=== PATIENT | female | born 1990 | race Caucasian/White ===

== ENCOUNTER 2016-10-09 18:42 | Emergency (ER) | payer OTHER ==
--- NOTE | 2016-10-09 22:17 | ED ORDER SUMMARY ---
..... Patient: LYNDSAY GARCIA OrderSheet [facility] VisitID: [id number] [place] [address] 26y, F Registration Date/Time: 10/09/2016 ORDER SHEET Weight: 45.3 kg (stated) Allergies: Citalopram GENERAL ORDERS: MEDICATION ORDERS: Azithromycin PO 1000 mg (NOW) (21:51 10/09/2016 EKoroleva P.A.-C) (22:27 TBowen R.N.) Cefixime PO 400 mg (NOW) (21:51 10/09/2016 EKoroleva P.A.-C) (22:27 TBowen R.N.) Flagyl PO 2000 mg (NOW) (21:51 10/09/2016 EKoroleva P.A.-C) (22:27 TBowen R.N.) Plan B PO 1.5 mg (NOW) (21:52 10/09/2016 EKoroleva P.A.-C) (22:27 TBowen R.N.) IV FLUIDS: ORDER SHEET NOTES: [Electronically signed by Georgina Bullock R.N. (22:33 10/09/2016)] [Electronically signed by Neda Flores P.A.-C (22:38 10/09/2016)] [Electronically locked/signed by Georgina Bullock R.N. (22:33 10/09/2016)]
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
--- NOTE | 2016-10-09 22:17 | ED ORDER SUMMARY ---
..... Patient: LYNDSAY GARCIA OrderSheet [facility] VisitID: [id number] [place] [address] 26y, F Registration Date/Time: 10/09/2016 ORDER SHEET Weight: 45.3 kg (stated) Allergies: Citalopram GENERAL ORDERS: MEDICATION ORDERS: Azithromycin PO 1000 mg (NOW) (21:51 10/09/2016 EKoroleva P.A.-C) (22:27 TBowen R.N.) Cefixime PO 400 mg (NOW) (21:51 10/09/2016 EKoroleva P.A.-C) (22:27 TBowen R.N.) Flagyl PO 2000 mg (NOW) (21:51 10/09/2016 EKoroleva P.A.-C) (22:27 TBowen R.N.) Plan B PO 1.5 mg (NOW) (21:52 10/09/2016 EKoroleva P.A.-C) (22:27 TBowen R.N.) IV FLUIDS: ORDER SHEET NOTES: [Electronically signed by Georgina Bullock R.N. (22:33 10/09/2016)] [Electronically signed by Neda Flores P.A.-C (22:38 10/09/2016)] [Electronically locked/signed by Georgina Bullock R.N. (22:33 10/09/2016)]
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
--- NOTE | 2016-10-09 22:38 | ED MAR SUMMARY ---
..... Medication Administration Record [facility] [address] [place] [address] Patient: LYNDSAY GARCIA Visit ID: [id number] 26y, F Weight: 45.3 kg Height/Length: 60 in BMI: 19.5 ALLERGIES: Citalopram Given 22:10/09/2016 Jessie RYvrose Medication Administered: AZITHROMYCIN [PO], Dose: 1000 mg PO. Medication Ordered: Azithromycin PO 1000 mg (NOW). Given :10/09/2016 Jessie R.N. Medication Administered: CEFIXIME [PO], Dose: 400 mg PO. Medication Ordered: Cefixime PO 400 mg (NOW). Given :10/09/2016 Jessie R.N. Medication Administered: FLAGYL [PO] (METRONIDAZOLE), Dose: 2000 mg PO. Medication Ordered: Flagyl PO 2000 mg (NOW). Given :10/09/2016 Jessie R.N. Medication Administered: PLAN B [PO] (LEVONORGESTREL), Dose: 1.5 mg PO. Medication Ordered: Plan B PO 1.5 mg (NOW).
--- NOTE | 2016-10-09 22:38 | ED MED RECONCILIATION SUMMARY ---
Patient: LYNDSAY GARCIA Medication Reconciliation Report [facility] VisitID: [id number] [place] [address] 26y, F Registration Date/Time: 10/09/2016 Weight: 45.3 kg Height/Length: 60 in. BMI: 19.5 ALLERGIES: Citalopram The patient's Home Medications are listed below: THE FOLLOWING MEDICATIONS NEED TO BE RECONCILED: Gabapentin Oral (300 mg) 1 capsule, 3x a day Ondansetron HCl Oral (4 mg) 1 tablet Ranitidine HCl Oral (150 mg) 1 tablet, 2x a day Venlafaxine HCl ER Oral (37.5 mg), bid The source(s) of the original Home Medication information: patient's pill bottles The following Medications were given to the patient in the Emergency Department: Azithromycin [PO] PO 1000 mg, administered: 10/09/2016 10:17:00 PM Cefixime [PO] PO 400 mg, administered: 10/09/2016 10:17:00 PM Flagyl [PO] PO 2000 mg, administered: 10/09/2016 10:17:00 PM Plan B [PO] PO 1.5 mg, administered: 10/09/2016 10:17:00 PM The following Medications were prescribed to the patient: Take OTC medications according to label instructions. Available over the counter. -- Neda Flores, P.A.-C Acetaminophen (available over the counter): take according to label instructions. -- Neda Flores, P.A.-C Motrin (available over the counter): take according to label instructions. -- Neda Flores, P.A.-C
--- NOTE | 2016-10-09 22:38 | ED MED RECONCILIATION SUMMARY ---
Patient: LYNDSAY GARCIA Medication Reconciliation Report [facility] VisitID: [id number] [place] [address] 26y, F Registration Date/Time: 10/09/2016 Weight: 45.3 kg Height/Length: 60 in. BMI: 19.5 ALLERGIES: Citalopram The patient's Home Medications are listed below: THE FOLLOWING MEDICATIONS NEED TO BE RECONCILED: Gabapentin Oral (300 mg) 1 capsule, 3x a day Ondansetron HCl Oral (4 mg) 1 tablet Ranitidine HCl Oral (150 mg) 1 tablet, 2x a day Venlafaxine HCl ER Oral (37.5 mg), bid The source(s) of the original Home Medication information: patient's pill bottles The following Medications were given to the patient in the Emergency Department: Azithromycin [PO] PO 1000 mg, administered: 10/09/2016 10:17:00 PM Cefixime [PO] PO 400 mg, administered: 10/09/2016 10:17:00 PM Flagyl [PO] PO 2000 mg, administered: 10/09/2016 10:17:00 PM Plan B [PO] PO 1.5 mg, administered: 10/09/2016 10:17:00 PM The following Medications were prescribed to the patient: Take OTC medications according to label instructions. Available over the counter. -- Neda Flores, P.A.-C Acetaminophen (available over the counter): take according to label instructions. -- Neda Flores, P.A.-C Motrin (available over the counter): take according to label instructions. -- Neda Flores, P.A.-C
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
--- NOTE | 2016-10-09 22:38 | ED MAR SUMMARY ---
..... Medication Administration Record [facility] [address] [place] [address] Patient: LYNDSAY GARCIA Visit ID: [id number] 26y, F Weight: 45.3 kg Height/Length: 60 in BMI: 19.5 ALLERGIES: Citalopram Given 22:10/09/2016 Jessie RYvrose Medication Administered: AZITHROMYCIN [PO], Dose: 1000 mg PO. Medication Ordered: Azithromycin PO 1000 mg (NOW). Given :10/09/2016 Jessie R.N. Medication Administered: CEFIXIME [PO], Dose: 400 mg PO. Medication Ordered: Cefixime PO 400 mg (NOW). Given :10/09/2016 Jessie R.N. Medication Administered: FLAGYL [PO] (METRONIDAZOLE), Dose: 2000 mg PO. Medication Ordered: Flagyl PO 2000 mg (NOW). Given :10/09/2016 Jessie R.N. Medication Administered: PLAN B [PO] (LEVONORGESTREL), Dose: 1.5 mg PO. Medication Ordered: Plan B PO 1.5 mg (NOW).
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
== END 2016-10-09 22:30 | disposition home or self-care (01) ==
LOC: ED SRH 18:42
DX: Z04.41 Encounter for examination and observation following alleged adult rape (principal); Z87.891 Personal history of nicotine dependence; Z79.899 Other long term (current) drug therapy

== ENCOUNTER 2016-12-17 12:47 | Emergency (ER) | payer SELFPAY ==
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
--- NOTE | 2016-12-17 13:19 | ED ORDER SUMMARY ---
..... Patient: LYNDSAY GARCIA OrderSheet [facility] VisitID: [id number] [address] [place] [address] 26y, F Registration Date/Time: 12/17/2016 ORDER SHEET Weight: 43.9 kg (stated) Allergies: Citalopram GENERAL ORDERS: MEDICATION ORDERS: Decadron IM 8 mg (NOW) (13:12 12/17/2016 Yesenia A.R.N.P.) ([facility] 13:16 Kiley R.N.) (13:35 Kristine R.N.) IV FLUIDS: ORDER SHEET NOTES: [Electronically signed by He Suazo R.N. (13:51 12/17/2016)] [Electronically signed by Renu PetersonR.N.P. (20:37 12/17/2016)] [Electronically locked/signed by He Suazo R.N. (13:51 12/17/2016)]
--- NOTE | 2016-12-17 13:19 | ED ORDER SUMMARY ---
..... Patient: LYNDSAY GARCIA OrderSheet [facility] VisitID: [id number] [address] [place] [address] 26y, F Registration Date/Time: 12/17/2016 ORDER SHEET Weight: 43.9 kg (stated) Allergies: Citalopram GENERAL ORDERS: MEDICATION ORDERS: Decadron IM 8 mg (NOW) (13:12 12/17/2016 Yesenia A.R.N.P.) ([facility] 13:16 Kiley R.N.) (13:35 Kristine R.N.) IV FLUIDS: ORDER SHEET NOTES: [Electronically signed by He Suazo R.N. (13:51 12/17/2016)] [Electronically signed by Renu PetersonR.N.P. (20:37 12/17/2016)] [Electronically locked/signed by He Suazo R.N. (13:51 12/17/2016)]
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
--- NOTE | 2016-12-17 20:37 | ED DISCHARGE INSTRUCTIONS ---
Patient: LYNDSAY GARCIA General Instructions [facility] VisitID: [id number] [place] [address] 26y, F Registration Date/Time: 12/17/2016 Mild irritative contact dermatitis. INSTRUCTIONS ([facility] [address] [facility] [address] Dermatology: ). Warnings: GENERAL WARNINGS: Return or contact your physician immediately if your condition worsens or changes unexpectedly, if not improving as expected, or if other problems arise. Specifically return if problem worsens. Prescription Medications: Nena 180 mg tablets: take 1 orally daily for 10 days. Dispense ten (10). No refills. Prednisone 20 mg: take 3 orally every day for 5 days. Dispense fifteen (15). No refills. Keflex 500 mg: take 1 capsule orally every 6 hours for 10 days. No refill. Motrin 800 mg tablets: take 1 tablet orally every 8 hours as needed for pain. Dispense thirty (30). No refills. Substitution is permissible. Betamethasone Diproprinate 60ml bottle or 45gm tube apply bid to affected area. Follow-up: Follow up with a district plant supervisor in about two days even if well. Call for an appointment. Summary of care provided to patient. Understanding of the discharge instructions verbalized by patient. ADDITIONAL INFORMATION Dermatitis (Non-Specific) Dermatitis is an inflammation of the skin. The exact cause of your rash is not certain. However, this rash does not appear to be an infection or contagious illness. Taking care of the rash at home should help relieve your symptoms. Home Care: Keep the areas of rash clean by washing it daily. This also helps to keep the skin moist. Use a neutral pH soap such as Dove or Lever 2000. Apply a moisturizing lotion after bathing to prevent dry skin. Avoid skin irritants (wool or silk clothing, grease, oils, some medicines, harsh soaps, and detergents). Wear absorbent, soft fabrics next to the skin rather than rough or scratchy materials. Unless another medicine was prescribed, you may use Hydrocortisone cream (which you can get without a prescription) to reduce the inflammation. Follow Up: Make an appointment with your doctor in the next 1 to 2 weeks if your symptoms do not improve with the above measures. Get Prompt Medical Attention if any of the following occur: Increasing area of redness or pain in the skin Yellow crusts or drainage from the rash Joint pain New rash that appears in other areas of the body Fever of 100.4F (38C) or higher, or as directed by your healthcare provider Fexofenadine Hydrochloride Oral tablet What is this medicine? FEXOFENADINE (fex oh CHE a kurt) is an antihistamine. This medicine is used to treat or prevent symptoms of allergies. It is also used to help reduce itchy skin rash and hives. How should I use this medicine? Take this medicine by mouth with a full glass of water. Follow the directions on the prescription label. You may take this medicine with food or on an empty stomach. Take your medicine at regular intervals. Do not take it more often than directed. You may need to take this medicine for several days before your symptoms improve. Talk to your home performance laborer regarding the use of this medicine in children. While this drug may be prescribed for children as young as 6 years old for selected conditions, precautions do apply. What side effects may I notice from receiving this medicine? Side effects that you should report to your doctor or health childcare worker as soon as possible: allergic reactions like skin rash, itching or hives, swelling of the face, lips, or tongue breathing problems chest pain fast heartbeat infection or fever Side effects that usually do not require medical attention (report to your doctor or health childcare worker if they continue or are bothersome): cough drowsiness dry or irritated nose, mouth, or throat headache menstrual changes pain stomach upset, nausea What may interact with this medicine? antacids erythromycin grapefruit, apple, or orange juice ketoconazole magnesium-containing products What if I miss a dose? If you miss a dose, take it as soon as you can. If it is almost time for your next dose, take only that dose. Do not take double or extra doses. Where should I keep my medicine? Keep out of the reach of children. Store at room temperature between 20 and 25 degrees C (68 and 77degrees F). Protect from moisture. Throw away any unused medicine after the expiration date. What should I tell my health care provider before I take this medicine? They need to know if you have any of these conditions: kidney disease an unusual or allergic reaction to fexofenadine, terfenadine, other medicines, foods, dyes, or preservatives or trying to get breast-feeding What should I watch for while using this medicine? Visit your doctor or health childcare worker for regular checks on your health. Tell your doctor or healthcare professional if your symptoms do not start to get better or if they get worse. Prednisone Oral tablet What is this medicine? PREDNISONE (PRED ni sone) is a corticosteroid. It is commonly used to treat inflammation of the skin, joints, lungs, and other organs. Common conditions treated include asthma, allergies, and arthritis. It is also used for other conditions, such as blood disorders and diseases of the adrenal glands. How should I use this medicine? Take this medicine by mouth with a glass of water. Follow the directions on the prescription label. Take this medicine with food. If you are taking this medicine once a day, take it in the morning. Do not take more medicine than you are told to take. Do not suddenly stop taking your medicine because you may develop a severe reaction. Your doctor will tell you how much medicine to take. If your doctor wants you to stop the medicine, the dose may be slowly lowered over time to avoid any side effects. Talk to your home performance laborer regarding the use of this medicine in children. Special care may be needed. What side effects may I notice from receiving this medicine? Side effects that you should report to your doctor or health childcare worker as soon as possible: allergic reactions like skin rash, itching or hives, swelling of the face, lips, or tongue changes in emotions or moods changes in vision depressed mood eye pain fever or chills, cough, sore throat, pain or difficulty passing urine increased thirst swelling of ankles, feet Side effects that usually do not require medical attention (report to your doctor or health childcare worker if they continue or are bothersome): confusion, excitement, restlessness headache nausea, vomiting skin problems, acne, thin and shiny skin trouble sleeping weight gain What may interact with this medicine? Do not take this medicine with any of the following medications: metyrapone mifepristone This medicine may also interact with the following medications: aminoglutethimide amphotericin B aspirin and aspirin-like medicines barbiturates certain medicines for diabetes, like glipizide or glyburide cholestyramine cholinesterase inhibitors cyclosporine digoxin diuretics ephedrine female hormones, like estrogens and control pills isoniazid ketoconazole NSAIDS, medicines for pain and inflammation, like ibuprofen or naproxen phenytoin rifampin toxoids vaccines warfarin What if I miss a dose? If you miss a dose, take it as soon as you can. If it is almost time for your next dose, talk to your doctor or health childcare worker. You may need to miss a dose or take an extra dose. Do not take double or extra doses without advice. Where should I keep my medicine? Keep out of the reach of children. Store at room temperature between 15 and 30 degrees C (59 and 86 degrees F). Protect from light. Keep container tightly closed. Throw away any unused medicine after the expiration date. What should I tell my health care provider before I take this medicine? They need to know if you have any of these conditions: Eliu's syndrome diabetes glaucoma heart disease high blood pressure infection (especially a virus infection such as chickenpox, cold sores, or herpes) kidney disease liver disease mental illness myasthenia gravis osteoporosis seizures stomach or intestine problems thyroid disease an unusual or allergic reaction to lactose, prednisone, other medicines, foods, dyes, or preservatives or trying to get breast-feeding What should I watch for while using this medicine? Visit your doctor or health childcare worker for regular checks on your progress. If you are taking this medicine over a prolonged period, carry an identification card with your name and address, the type and dose of your medicine, and your doctor's name and address. This medicine may increase your risk of getting an infection. Tell your doctor or health childcare worker if you are around anyone with measles or chickenpox, or if you develop sores or blisters that do not heal properly. If you are going to have surgery, tell your doctor or health childcare worker that you have taken this medicine within the last twelve months. Ask your doctor or health childcare worker about your diet. You may need to lower the amount of salt you eat. This medicine may affect blood sugar levels. If you have diabetes, check with your doctor or health childcare worker before you change your diet or the dose of your diabetic medicine. Cephalexin Monohydrate Oral tablet What is this medicine? CEPHALEXIN (sef a DARON in) is a cephalosporin antibiotic. It is used to treat certain kinds of bacterial infections It will not work for colds, flu, or other viral infections. How should I use this medicine? Take this medicine by mouth with a full glass of water. Follow the directions on the prescription label. This medicine can be taken with or without food. Take your medicine at regular intervals. Do not take your medicine more often than directed. Take all of your medicine as directed even if you think you are better. Do not skip doses or stop your medicine early. Talk to your home performance laborer regarding the use of this medicine in children. While this drug may be prescribed for selected conditions, precautions do apply. What side effects may I notice from receiving this medicine? Side effects that you should report to your doctor or health childcare worker as soon as possible: allergic reactions like skin rash, itching or hives, swelling of the face, lips, or tongue breathing problems pain or trouble passing urine redness, blistering, peeling or loosening of the skin, including inside the mouth severe or watery diarrhea unusually weak or tired yellowing of the eyes, skin Side effects that usually do not require medical attention (report to your doctor or health childcare worker if they continue or are bothersome): gas or heartburn genital or anal irritation headache joint or muscle pain nausea, vomiting What may interact with this medicine? probenecid some other antibiotics What if I miss a dose? If you miss a dose, take it as soon as you can. If it is almost time for your next dose, take only that dose. Do not take double or extra doses. There should be at least 4 to 6 hours between doses. Where should I keep my medicine? Keep out of the reach of children. Store at room temperature between 59 and 86 degrees F (15 and 30 degrees C). Throw away any unused medicine after the expiration date. What should I tell my health care provider before I take this medicine? They need to know if you have any of these conditions: kidney disease stomach or intestine problems, especially colitis an unusual or allergic reaction to cephalexin, other cephalosporins, penicillins, other antibiotics, medicines, foods, dyes or preservatives or trying to get breast-feeding What should I watch for while using this medicine? Tell your doctor or health childcare worker if your symptoms do not begin to improve in a few days. Do not treat diarrhea with over the counter products. Contact your doctor if you have diarrhea that lasts more than 2 days or if it is severe and watery. If you have diabetes, you may get a false-positive result for sugar in your urine. Check with your doctor or health childcare worker. Ibuprofen Oral tablet What is this medicine? IBUPROFEN (eye BYOO proe fen) is a non-steroidal anti-inflammatory drug (NSAID). It is used for dental pain, fever, headaches or migraines, osteoarthritis, rheumatoid arthritis, or painful monthly periods. It can also relieve minor aches and pains caused by a cold, flu, or sore throat. How should I use this medicine? Take this medicine by mouth with a glass of water. Follow the directions on the prescription label. Take this medicine with food if your stomach gets upset. Try to not lie down for at least 10 minutes after you take the medicine. Take your medicine at regular intervals. Do not take your medicine more often than directed. A special MedGuide will be given to you by the pharmacist with each prescription and refill. Be sure to read this information carefully each time. Talk to your home performance laborer regarding the use of this medicine in children. Special care may be needed. What side effects may I notice from receiving this medicine? Side effects that you should report to your doctor or health childcare worker as soon as possible: allergic reactions like skin rash, itching or hives, swelling of the face, lips, or tongue black or bloody stools, blood in the urine or in vomit breathing problems changes in vision chest pain general ill feeling or flu-like symptoms nausea or vomiting redness, blistering, peeling or loosening of the skin, including inside the mouth slurred speech or weakness on one side of the body stomach pain unexplained weight gain or swelling unusually weak or tired yellowing of eyes or skin Side effects that usually do not require medical attention (report to your doctor or health childcare worker if they continue or are bothersome): constipation or diarrhea dizziness gas or heartburn stomach upset What may interact with this medicine? Do not take this medicine with any of the following medications: cidofovir ketorolac methotrexate pemetrexed This medicine may also interact with the following medications: alcohol aspirin diuretics lithium other drugs for inflammation like prednisone warfarin What if I miss a dose? If you miss a dose, take it as soon as you can. If it is almost time for your next dose, take only that dose. Do not take double or extra doses. Where should I keep my medicine? Keep out of the reach of children. Store at room temperature between 15 and 30 degrees C (59 and 86 degrees F). Keep container tightly closed. Throw away any unused medicine after the expiration date. What should I tell my health care provider before I take this medicine? They need to know if you have any of these conditions: asthma cigarette smoker drink more than 3 alcohol containing drinks a day heart disease or circulation problems such as heart failure or leg edema (fluid retention) high blood pressure kidney disease liver disease stomach bleeding or ulcers an unusual or allergic reaction to ibuprofen, aspirin, other NSAIDS, other medicines, foods, dyes, or preservatives or trying to get breast-feeding What should I watch for while using this medicine? Tell your doctor or healthcare professional if your symptoms do not start to get better or if they get worse. This medicine does not prevent heart attack or stroke. In fact, this medicine may increase the chance of a heart attack or stroke. The chance may increase with longer use of this medicine and in people who have heart disease. If you take aspirin to prevent heart attack or stroke, talk with your doctor or health childcare worker. Do not take other medicines that contain aspirin, ibuprofen, or naproxen with this medicine. Side effects such as stomach upset, nausea, or ulcers may be more likely to occur. Many medicines available without a prescription should not be taken with this medicine. This medicine can cause ulcers and bleeding in the stomach and intestines at any time during treatment. Ulcers and bleeding can happen without warning symptoms and can cause . To reduce your risk, do not smoke cigarettes or drink alcohol while you are taking this medicine. You may get drowsy or dizzy. Do not drive, use machinery, or do anything that needs mental alertness until you know how this medicine affects you. Do not stand or sit up quickly, especially if you are an older patient. This reduces the risk of dizzy or fainting spells. This medicine can cause you to bleed more easily. Try to avoid damage to your teeth and gums when you brush or floss your teeth. You have been given the following additional information: Dermatitis, Non-Specific Fexofenadine Hydrochloride Oral tablet Prednisone Oral tablet Cephalexin Monohydrate Oral tablet Ibuprofen Oral tablet (Electronically signed by Renu Peterson A.R.N.P. 12/17/2016 20:37)
--- NOTE | 2016-12-17 20:37 | ED MAR SUMMARY ---
..... Medication Administration Record [facility] [address] [place] [address] Patient: LYNDSAY GARCIA Visit ID: [id number] 26y, F Weight: 43.9 kg Height/Length: 60 in BMI: 18.9 ALLERGIES: Citalopram Given 13:34 12/17/2016 Fco Alexander R.N. Medication Administered: DECADRON [IM] (DEXAMETHASONE SODIUM PHOSPHATE), Dose: 8 mg IM. Medication Ordered: Decadron IM 8 mg (NOW).
--- NOTE | 2016-12-17 20:37 | ED MED RECONCILIATION SUMMARY ---
Patient: LYNDSAY GARCIA Medication Reconciliation Report [facility] VisitID: [id number] [address] [place] [address] 26y, F Registration Date/Time: 12/17/2016 Weight: 43.9 kg Height/Length: 60 in. BMI: 18.9 ALLERGIES: Citalopram The patient's Home Medications are listed below: THE FOLLOWING MEDICATIONS NEED TO BE RECONCILED: Gabapentin Oral (300 mg) 1 capsule, 3x a day Ondansetron HCl Oral (4 mg) 1 tablet Ranitidine HCl Oral (150 mg) 1 tablet, 2x a day Venlafaxine HCl ER Oral (37.5 mg), bid The source(s) of the original Home Medication information: patient The following Medications were given to the patient in the Emergency Department: Decadron [IM] IM 8 mg, administered: 12/17/2016 1:34:00 PM The following Medications were prescribed to the patient: Nena 180 mg tablets: take 1 orally daily for 10 days. Dispense ten (10). No refills. -- Renu Peterson A.R.N.P. Prednisone 20 mg: take 3 orally every day for 5 days. Dispense fifteen (15). No refills. -- Renu Peterson A.R.N.P. Keflex 500 mg: take 1 capsule orally every 6 hours for 10 days. No refill. -- Renu Peterson A.R.N.P. Motrin 800 mg tablets: take 1 tablet orally every 8 hours as needed for pain. Dispense thirty (30). No refills. Substitution is permissible. -- Renu Peterson A.R.N.P. Betamethasone [id number] bottle or 45gm tubeapply bid to affected area. -- Renu Peterson A.R.N.P.
--- NOTE | 2016-12-17 20:37 | ED MED RECONCILIATION SUMMARY ---
Patient: LYNDSAY GARCIA Medication Reconciliation Report [facility] VisitID: [id number] [address] [place] [address] 26y, F Registration Date/Time: 12/17/2016 Weight: 43.9 kg Height/Length: 60 in. BMI: 18.9 ALLERGIES: Citalopram The patient's Home Medications are listed below: THE FOLLOWING MEDICATIONS NEED TO BE RECONCILED: Gabapentin Oral (300 mg) 1 capsule, 3x a day Ondansetron HCl Oral (4 mg) 1 tablet Ranitidine HCl Oral (150 mg) 1 tablet, 2x a day Venlafaxine HCl ER Oral (37.5 mg), bid The source(s) of the original Home Medication information: patient The following Medications were given to the patient in the Emergency Department: Decadron [IM] IM 8 mg, administered: 12/17/2016 1:34:00 PM The following Medications were prescribed to the patient: Nena 180 mg tablets: take 1 orally daily for 10 days. Dispense ten (10). No refills. -- Renu Peterson A.R.N.P. Prednisone 20 mg: take 3 orally every day for 5 days. Dispense fifteen (15). No refills. -- Renu Peterson A.R.N.P. Keflex 500 mg: take 1 capsule orally every 6 hours for 10 days. No refill. -- Renu Peterson A.R.N.P. Motrin 800 mg tablets: take 1 tablet orally every 8 hours as needed for pain. Dispense thirty (30). No refills. Substitution is permissible. -- Renu Peterson A.R.N.P. Betamethasone [id number] bottle or 45gm tubeapply bid to affected area. -- Renu Peterson A.R.N.P.
--- NOTE | 2016-12-17 20:37 | ED DISCHARGE INSTRUCTIONS ---
Patient: LYNDSAY GARCIA General Instructions [facility] VisitID: [id number] [place] [address] 26y, F Registration Date/Time: 12/17/2016 Mild irritative contact dermatitis. INSTRUCTIONS ([facility] [address] [address] [facility] [address] Dermatology: ). Warnings: GENERAL WARNINGS: Return or contact your physician immediately if your condition worsens or changes unexpectedly, if not improving as expected, or if other problems arise. Specifically return if problem worsens. Prescription Medications: Nena 180 mg tablets: take 1 orally daily for 10 days. Dispense ten (10). No refills. Prednisone 20 mg: take 3 orally every day for 5 days. Dispense fifteen (15). No refills. Keflex 500 mg: take 1 capsule orally every 6 hours for 10 days. No refill. Motrin 800 mg tablets: take 1 tablet orally every 8 hours as needed for pain. Dispense thirty (30). No refills. Substitution is permissible. Betamethasone Diproprinate 60ml bottle or 45gm tube apply bid to affected area. 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 Call for an appointment. Summary of care provided to patient. Understanding of the discharge instructions verbalized by patient. ADDITIONAL INFORMATION Dermatitis (Non-Specific) Dermatitis is an inflammation of the skin. The exact cause of your rash is not certain. However, this rash does not appear to be an infection or contagious illness. Taking care of the rash at home should help relieve your symptoms. Home Care: Keep the areas of rash clean by washing it daily. This also helps to keep the skin moist. Use a neutral pH soap such as Dove or Lever 2000. Apply a moisturizing lotion after bathing to prevent dry skin. Avoid skin irritants (wool or silk clothing, grease, oils, some medicines, harsh soaps, and detergents). Wear absorbent, soft fabrics next to the skin rather than rough or scratchy materials. Unless another medicine was prescribed, you may use Hydrocortisone cream (which you can get without a prescription) to reduce the inflammation. Follow Up: Make an appointment with your doctor in the next 1 to 2 weeks if your symptoms do not improve with the above measures. Get Prompt Medical Attention if any of the following occur: Increasing area of redness or pain in the skin Yellow crusts or drainage from the rash Joint pain New rash that appears in other areas of the body Fever of 100.4F (38C) or higher, or as directed by your healthcare provider Fexofenadine Hydrochloride Oral tablet What is this medicine? FEXOFENADINE (fex oh CHE a kurt) is an antihistamine. This medicine is used to treat or prevent symptoms of allergies. It is also used to help reduce itchy skin rash and hives. How should I use this medicine? Take this medicine by mouth with a full glass of water. Follow the directions on the prescription label. You may take this medicine with food or on an empty stomach. Take your medicine at regular intervals. Do not take it more often than directed. You may need to take this medicine for several days before your symptoms improve. Talk to your child care leader regarding the use of this medicine in children. While this drug may be prescribed for children as young as 6 years old for selected conditions, precautions do apply. What side effects may I notice from receiving this medicine? Side effects that you should report to your doctor or health careers adviser as soon as possible: allergic reactions like skin rash, itching or hives, swelling of the face, lips, or tongue breathing problems chest pain fast heartbeat infection or fever Side effects that usually do not require medical attention (report to your doctor or health careers adviser if they continue or are bothersome): cough drowsiness dry or irritated nose, mouth, or throat headache menstrual changes pain stomach upset, nausea What may interact with this medicine? antacids erythromycin grapefruit, apple, or orange juice ketoconazole magnesium-containing products What if I miss a dose? If you miss a dose, take it as soon as you can. If it is almost time for your next dose, take only that dose. Do not take double or extra doses. Where should I keep my medicine? Keep out of the reach of children. Store at room temperature between 20 and 25 degrees C (68 and 77degrees F). Protect from moisture. Throw away any unused medicine after the expiration date. What should I tell my health care provider before I take this medicine? They need to know if you have any of these conditions: kidney disease an unusual or allergic reaction to fexofenadine, terfenadine, other medicines, foods, dyes, or preservatives or trying to get breast-feeding What should I watch for while using this medicine? Visit your doctor or health careers adviser for regular checks on your health. Tell your doctor or healthcare professional if your symptoms do not start to get better or if they get worse. Prednisone Oral tablet What is this medicine? PREDNISONE (PRED ni sone) is a corticosteroid. It is commonly used to treat inflammation of the skin, joints, lungs, and other organs. Common conditions treated include asthma, allergies, and arthritis. It is also used for other conditions, such as blood disorders and diseases of the adrenal glands. How should I use this medicine? Take this medicine by mouth with a glass of water. Follow the directions on the prescription label. Take this medicine with food. If you are taking this medicine once a day, take it in the morning. Do not take more medicine than you are told to take. Do not suddenly stop taking your medicine because you may develop a severe reaction. Your doctor will tell you how much medicine to take. If your doctor wants you to stop the medicine, the dose may be slowly lowered over time to avoid any side effects. Talk to your child care leader regarding the use of this medicine in children. Special care may be needed. What side effects may I notice from receiving this medicine? Side effects that you should report to your doctor or health careers adviser as soon as possible: allergic reactions like skin rash, itching or hives, swelling of the face, lips, or tongue changes in emotions or moods changes in vision depressed mood eye pain fever or chills, cough, sore throat, pain or difficulty passing urine increased thirst swelling of ankles, feet Side effects that usually do not require medical attention (report to your doctor or health careers adviser if they continue or are bothersome): confusion, excitement, restlessness headache nausea, vomiting skin problems, acne, thin and shiny skin trouble sleeping weight gain What may interact with this medicine? Do not take this medicine with any of the following medications: metyrapone mifepristone This medicine may also interact with the following medications: aminoglutethimide amphotericin B aspirin and aspirin-like medicines barbiturates certain medicines for diabetes, like glipizide or glyburide cholestyramine cholinesterase inhibitors cyclosporine digoxin diuretics ephedrine female hormones, like estrogens and control pills isoniazid ketoconazole NSAIDS, medicines for pain and inflammation, like ibuprofen or naproxen phenytoin rifampin toxoids vaccines warfarin What if I miss a dose? If you miss a dose, take it as soon as you can. If it is almost time for your next dose, talk to your doctor or health careers adviser. You may need to miss a dose or take an extra dose. Do not take double or extra doses without advice. Where should I keep my medicine? Keep out of the reach of children. Store at room temperature between 15 and 30 degrees C (59 and 86 degrees F). Protect from light. Keep container tightly closed. Throw away any unused medicine after the expiration date. What should I tell my health care provider before I take this medicine? They need to know if you have any of these conditions: Elui's syndrome diabetes glaucoma heart disease high blood pressure infection (especially a virus infection such as chickenpox, cold sores, or herpes) kidney disease liver disease mental illness myasthenia gravis osteoporosis seizures stomach or intestine problems thyroid disease an unusual or allergic reaction to lactose, prednisone, other medicines, foods, dyes, or preservatives or trying to get breast-feeding What should I watch for while using this medicine? Visit your doctor or health careers adviser for regular checks on your progress. If you are taking this medicine over a prolonged period, carry an identification card with your name and address, the type and dose of your medicine, and your doctor's name and address. This medicine may increase your risk of getting an infection. Tell your doctor or health careers adviser if you are around anyone with measles or chickenpox, or if you develop sores or blisters that do not heal properly. If you are going to have surgery, tell your doctor or health careers adviser that you have taken this medicine within the last twelve months. Ask your doctor or health careers adviser about your diet. You may need to lower the amount of salt you eat. This medicine may affect blood sugar levels. If you have diabetes, check with your doctor or health careers adviser before you change your diet or the dose of your diabetic medicine. Cephalexin Monohydrate Oral tablet What is this medicine? CEPHALEXIN (sef a DARON in) is a cephalosporin antibiotic. It is used to treat certain kinds of bacterial infections It will not work for colds, flu, or other viral infections. How should I use this medicine? Take this medicine by mouth with a full glass of water. Follow the directions on the prescription label. This medicine can be taken with or without food. Take your medicine at regular intervals. Do not take your medicine more often than directed. Take all of your medicine as directed even if you think you are better. Do not skip doses or stop your medicine early. Talk to your child care leader regarding the use of this medicine in children. While this drug may be prescribed for selected conditions, precautions do apply. What side effects may I notice from receiving this medicine? Side effects that you should report to your doctor or health careers adviser as soon as possible: allergic reactions like skin rash, itching or hives, swelling of the face, lips, or tongue breathing problems pain or trouble passing urine redness, blistering, peeling or loosening of the skin, including inside the mouth severe or watery diarrhea unusually weak or tired yellowing of the eyes, skin Side effects that usually do not require medical attention (report to your doctor or health careers adviser if they continue or are bothersome): gas or heartburn genital or anal irritation headache joint or muscle pain nausea, vomiting What may interact with this medicine? probenecid some other antibiotics What if I miss a dose? If you miss a dose, take it as soon as you can. If it is almost time for your next dose, take only that dose. Do not take double or extra doses. There should be at least 4 to 6 hours between doses. Where should I keep my medicine? Keep out of the reach of children. Store at room temperature between 59 and 86 degrees F (15 and 30 degrees C). Throw away any unused medicine after the expiration date. What should I tell my health care provider before I take this medicine? They need to know if you have any of these conditions: kidney disease stomach or intestine problems, especially colitis an unusual or allergic reaction to cephalexin, other cephalosporins, penicillins, other antibiotics, medicines, foods, dyes or preservatives or trying to get breast-feeding What should I watch for while using this medicine? Tell your doctor or health careers adviser if your symptoms do not begin to improve in a few days. Do not treat diarrhea with over the counter products. Contact your doctor if you have diarrhea that lasts more than 2 days or if it is severe and watery. If you have diabetes, you may get a false-positive result for sugar in your urine. Check with your doctor or health careers adviser. Ibuprofen Oral tablet What is this medicine? IBUPROFEN (eye BYOO proe fen) is a non-steroidal anti-inflammatory drug (NSAID). It is used for dental pain, fever, headaches or migraines, osteoarthritis, rheumatoid arthritis, or painful monthly periods. It can also relieve minor aches and pains caused by a cold, flu, or sore throat. How should I use this medicine? Take this medicine by mouth with a glass of water. Follow the directions on the prescription label. Take this medicine with food if your stomach gets upset. Try to not lie down for at least 10 minutes after you take the medicine. Take your medicine at regular intervals. Do not take your medicine more often than directed. A special MedGuide will be given to you by the pharmacist with each prescription and refill. Be sure to read this information carefully each time. Talk to your child care leader regarding the use of this medicine in children. Special care may be needed. What side effects may I notice from receiving this medicine? Side effects that you should report to your doctor or health careers adviser as soon as possible: allergic reactions like skin rash, itching or hives, swelling of the face, lips, or tongue black or bloody stools, blood in the urine or in vomit breathing problems changes in vision chest pain general ill feeling or flu-like symptoms nausea or vomiting redness, blistering, peeling or loosening of the skin, including inside the mouth slurred speech or weakness on one side of the body stomach pain unexplained weight gain or swelling unusually weak or tired yellowing of eyes or skin Side effects that usually do not require medical attention (report to your doctor or health careers adviser if they continue or are bothersome): constipation or diarrhea dizziness gas or heartburn stomach upset What may interact with this medicine? Do not take this medicine with any of the following medications: cidofovir ketorolac methotrexate pemetrexed This medicine may also interact with the following medications: alcohol aspirin diuretics lithium other drugs for inflammation like prednisone warfarin What if I miss a dose? If you miss a dose, take it as soon as you can. If it is almost time for your next dose, take only that dose. Do not take double or extra doses. Where should I keep my medicine? Keep out of the reach of children. Store at room temperature between 15 and 30 degrees C (59 and 86 degrees F). Keep container tightly closed. Throw away any unused medicine after the expiration date. What should I tell my health care provider before I take this medicine? They need to know if you have any of these conditions: asthma cigarette smoker drink more than 3 alcohol containing drinks a day heart disease or circulation problems such as heart failure or leg edema (fluid retention) high blood pressure kidney disease liver disease stomach bleeding or ulcers an unusual or allergic reaction to ibuprofen, aspirin, other NSAIDS, other medicines, foods, dyes, or preservatives or trying to get breast-feeding What should I watch for while using this medicine? Tell your doctor or healthcare professional if your symptoms do not start to get better or if they get worse. This medicine does not prevent heart attack or stroke. In fact, this medicine may increase the chance of a heart attack or stroke. The chance may increase with longer use of this medicine and in people who have heart disease. If you take aspirin to prevent heart attack or stroke, talk with your doctor or health careers adviser. Do not take other medicines that contain aspirin, ibuprofen, or naproxen with this medicine. Side effects such as stomach upset, nausea, or ulcers may be more likely to occur. Many medicines available without a prescription should not be taken with this medicine. This medicine can cause ulcers and bleeding in the stomach and intestines at any time during treatment. Ulcers and bleeding can happen without warning symptoms and can cause . To reduce your risk, do not smoke cigarettes or drink alcohol while you are taking this medicine. You may get drowsy or dizzy. Do not drive, use machinery, or do anything that needs mental alertness until you know how this medicine affects you. Do not stand or sit up quickly, especially if you are an older patient. This reduces the risk of dizzy or fainting spells. This medicine can cause you to bleed more easily. Try to avoid damage to your teeth and gums when you brush or floss your teeth. You have been given the following additional information: Dermatitis, Non-Specific Fexofenadine Hydrochloride Oral tablet Prednisone Oral tablet Cephalexin Monohydrate Oral tablet Ibuprofen Oral tablet (Electronically signed by Renu Peterson A.R.N.P. 12/17/2016 20:37)
--- NOTE | 2016-12-17 20:37 | ED MAR SUMMARY ---
..... Medication Administration Record [facility] [address] [place] [address] Patient: LYNDSAY GARCIA Visit ID: [id number] 26y, F Weight: 43.9 kg Height/Length: 60 in BMI: 18.9 ALLERGIES: Citalopram Given 13:34 12/17/2016 Fco Alexander R.N. Medication Administered: DECADRON [IM] (DEXAMETHASONE SODIUM PHOSPHATE), Dose: 8 mg IM. Medication Ordered: Decadron IM 8 mg (NOW).
== END 2016-12-17 13:50 | disposition home or self-care (01) ==
LOC: ED SRH 12:47
DX: L24.9 Irritant contact dermatitis, unspecified cause (principal)